=== PATIENT | female | born 1960 | race Caucasian/White ===

== ENCOUNTER → 2021-03-14 | Outpatient (CLI) | payer MEDICARE, OTHER ==
[~2021-03-14] MED LIST: ACTOS15 MG PO; ADMELOG100 UNIT/1 SQ; BASAGLAR K100 UNIT/1 SQ; BYDUREON2 MG SQ; CYMBALTA60 MG PO; EPITOL200 MG PO; LIPITOR TAB 2020 MG PO; NEURONTIN600 MG PO; NORCO 5-325 TA1 EACH PO; RYTHMOL TAB 15150 MG PO; SYNTHROID200 MCG PO; VISTARIL 50 MG50 MG PO
== END ==
LOC: RAD 11:20
DX: Z11.1 Encounter for screening for respiratory tuberculosis (principal)
CPT/HCPCS: 71046

== ENCOUNTER → 2021-08-23 | Outpatient (CLI) | payer MEDICARE, OTHER | LOC: KOH-I 14:48 | DX: R07.82 Intercostal pain (principal); R07.1 Chest pain on breathing; W10.8XXA Fall (on) (from) other stairs and steps, initial encounter | CPT/HCPCS: 71045; 71101 ==

== ENCOUNTER → 2022-03-30 | Outpatient (CLI) | payer MEDICARE, OTHER | LOC: KOH-I 09:25 | DX: L40.0 Psoriasis vulgaris (principal); Z79.899 Other long term (current) drug therapy | CPT/HCPCS: 71046 ==

== ENCOUNTER → 2022-04-14 | Outpatient (CLI) | payer MEDICARE | LOC: LAB 11:58 | DX: Z51.81 Encounter for therapeutic drug level monitoring (principal); Z79.899 Other long term (current) drug therapy | CPT/HCPCS: 36415; 83036 ==

== ENCOUNTER → 2022-06-28 | Outpatient (CLI) | payer MEDICARE | LOC: KOH-I 06-19 16:30 | DX: R10.816 Epigastric abdominal tenderness (principal) | CPT/HCPCS: 74176 ==

== ENCOUNTER → 2022-08-25 | Outpatient (CLI) | payer MEDICARE ==
[2022-08-25 11:15] LABS: BUN/CREATININE RATIO 16 (0-10)
[2022-08-26 15:09] LABS: CHOLESTEROL, TOTAL 189 mg/dL (100-199); HDL SIZE 9.6 nm (>=9.2); HDL-C 73 mg/dL (>39); HDL-P (TOTAL) 43.1 umol/L (>=30.5); LARGE VLDL-P 6.5 nmol/L (<=2.7); LDL SIZE 21.5 nm (>20.5); LDL SIZE 21.5 nm (>=20.8); LDL-C 92 mg/dL (0-99); LDL-P 560 nmol/L (<1000); LP-IR SCORE 34 (<=45); SMALL LDL-P 210 nmol/L (<=527); TRIGLYCERIDES 143 mg/dL (0-149); VLDL SIZE 48.6 nm (<=46.6)
== END ==
LOC: LAB 10:31
PROVIDERS: Emergency Medicine
DX: E11.42 Type 2 diabetes mellitus with diabetic polyneuropathy (principal); I10 Essential (primary) hypertension; E78.2 Mixed hyperlipidemia
CPT/HCPCS: 36415; 80053; 80061; 83704; 84550